=== PATIENT | male | born 1995 | race Caucasian/White ===

== ENCOUNTER 2017-06-04 11:30 | Emergency (ER) | payer SELFPAY ==
--- NOTE | 2017-06-04 11:59 | ER Document Report ---
HPI - HPI Patient complains to provider of: redness to left ankle and foot Onset: Yesterday Onset/Duration: Gradual Pain Level: 5 Context: 21 yo male with reddness and pain to dorsal left foot and left lateral ankle since yesterday. No inury or fever. No hx gout. Non dm. No insect bite known. Drove from [place] after work to get checked. Here with mom. No fever or chills. Associated Symptoms: None Exacerbated by: Movement Relieved by: Denies Similar symptoms previously: No Recently seen / treated by doctor: No - ROS ROS below otherwise negative: Yes Systems Reviewed and Negative: Yes All other systems reviewed and negative - MUSCULOSKELETAL Musculoskeletal: REPORTS: Extremity pain - left foot /ankle Past Medical History - General Information source: Patient - Social History Smoking Status: Current Every Day Smoker Chew tobacco use (# tins/day): No Frequency of alcohol use: None Drug Abuse: None Lives with: Family Family History: Reviewed & Not Pertinent Patient has suicidal ideation: No Patient has homicidal ideation: No - Medical History Medical History: Negative Renal/ Medical History: Denies: Hx Peritoneal Dialysis Surgical Hx: Negative - Immunizations Immunizations up to date: Yes Hx Diphtheria, Pertussis, Tetanus Vaccination: Yes Vertical Provider Document - CONSTITUTIONAL Agree With Documented VS: Yes Exam Limitations: No Limitations General Appearance: No Apparent Distress - INFECTION CONTROL TRAVEL OUTSIDE OF THE [place] IN LAST 30 DAYS: No - HEENT HEENT: Normocephalic - NECK Neck: Supple - RESPIRATORY O2 Sat by Pulse Oximetry: 100 - MUSCULOSKELETAL/EXTREMETIES Musculoskeletal/Extremeties: MAEW, FROM, Tender - pink skin marked with pen lateral left ankle and smaller area dorsal left foot, non contiguous. No lymphangitis - NEURO Level of Consciousness: Awake, Alert - DERM Integumentary: Warm, Dry Course - Re-evaluation Re-evalutation: 06/04/17 13:19 Labs are normal except for C-reactive protein which is 25.9. X-rays are negative. Will treat with antibiotics have him elevate it and put warm compresses with a recheck tomorrow. 06/04/17 13:30 pt does not want injection of antibiotic offered. - Vital Signs Vital signs: Temp Pulse Resp BP Pulse Ox 97.7 F 80 16 151/90 H 100 06/04/17 11:39 06/04/17 11:39 06/04/17 11:39 06/04/17 11:39 06/04/17 11:39 - Laboratory Result Diagrams: 06/04/17 12:18 06/04/17 12:18 Discharge - Discharge Clinical Impression: left ankle and foot cellulitis Condition: Good Disposition: HOME, SELF-CARE Instructions: Cephalexin ([facility]), Elevation & Warmth ([facility]), Trimethoprim-Sulfa ( [facility]) Additional Instructions: recheck in ER tomorrow elevate and heat on the foot and ankle return to er tonight if fever, chills, red going up the leg or beyond the purple line Prescriptions: Cephalexin [Cephalexin 500 MG Tablet] 1 tab PO QID #40 tablet Sulfamethoxazole/Trimethoprim [Sulfamethoxazole-Tmp Ds Tablet] 1 each PO BID # 14 tablet Forms: Return to Work
[2017-06-04] MEDS ORDERED: CIPROFLOXACIN HCL 500 MG TABLET PO ONE ×2 (12:10→13:15)
[2017-06-04] MEDS ORDERED: SULFAMETHOXAZOLE/TRIMETHOPRIM 800-160 MG TABLET PO ONE ×2 (12:10→13:15)
[2017-06-04] MEDS ORDERED: IBUPROFEN 800 MG TABLET PO ONE ×2 (12:10→13:15)
[2017-06-04 12:33] LABS: ABSOLUTE BASOPHILS # (AUTO) 0.1 10^3/uL (0.0-0.2); ABSOLUTE EOSINOPHILS # (AUTO) 0.2 10^3/uL (0.0-0.6); ABSOLUTE LYMPHOCYTES (AUTO) 2.3 10^3/uL (0.5-4.7); BASOPHILS % (AUTO) 0.8 % (0-2); EOSINOPHILS % (AUTO) 1.8 % (0-6); HEMATOCRIT 41.1 % (37.9-51.0); HEMOGLOBIN 14.2 g/dL (13.5-17.0); LYMPHOCYTES % (AUTO) 23.8 % (13-45); MEAN CORPUSCULAR HEMOGLOBIN 29.9 pg (27.0-33.4); MEAN CORPUSCULAR HGB CONC 34.6 g/dL (32.0-36.0); MEAN CORPUSCULAR VOLUME 86 fl (80-97); MONOCYTES % (AUTO) 10.7 % (3-13); PLATELET COUNT 272 10^3/uL (150-450); RED BLOOD COUNT 4.76 10^6/uL (4.35-5.55); RED CELL DISTRIBUTION WIDTH 13.3 % (11.5-14.0); SEGMENTED NEUTROPHILS % (AUTO) 62.9 % (42-78); TOTAL CELLS COUNTED % (AUTO) 100 %; WHITE BLOOD COUNT 9.5 10^3/uL (4.0-10.5)
[2017-06-04 12:51] LABS: ALANINE AMINOTRANSFERASE 215 U/L (10-40); ALBUMIN 3.8 g/dL (3.7-5.6); ALKALINE PHOSPHATASE 72 U/L (65-260); ANION GAP 9 (5-19); ASPARTATE AMINO TRANSFERASE 55 U/L (10-45); BILIRUBIN,DIRECT 0.3 mg/dL (0.0-0.4); BILIRUBIN,TOTAL 0.8 mg/dL (0.2-1.3); BLOOD UREA NITROGEN 11 mg/dL (7-20); C-REACTIVE PROTEIN 25.9 mg/L (<10.0); CALCIUM 9.1 mg/dL (8.4-10.2); CARBON DIOXIDE 28 mmol/L (22-30); CHLORIDE 106 mmol/L (98-107); GLUCOSE 91 mg/dL (75-110); POTASSIUM 3.9 mmol/L (3.6-5.0); SODIUM 143.2 mmol/L (137-145); TOTAL PROTEIN 6.6 g/dL (6.3-8.2); URIC ACID 4.5 mg/dL (3.5-8.5)
--- NOTE | 2017-06-04 13:11 | RADIOLOGY REPORT (SQ) ---
EXAM DESCRIPTION: ANKLE LEFT COMPLETE COMPLETED DATE/TIME: 06/04/2017 12:49 pm REASON FOR STUDY: swollen, red, warm COMPARISON: None. NUMBER OF VIEWS: Three views. TECHNIQUE: AP, lateral, and oblique radiographic images acquired of the left ankle. LIMITATIONS: None. FINDINGS: MINERALIZATION: Normal. BONES: No acute fracture or dislocation. No worrisome bone lesions. JOINTS: No effusions. SOFT TISSUES: Swelling over the lateral joint. No foreign body. OTHER: No other significant finding. IMPRESSION: No fracture. TECHNICAL DOCUMENTATION: JOB ID: [id number] [employer]- All Rights Reserved Reading location - IP/workstation name: [email or web address] [id number]
--- NOTE | 2017-06-04 13:11 | RADIOLOGY REPORT (SQ) ---
EXAM DESCRIPTION: FOOT LEFT COMPLETE COMPLETED DATE/TIME: 06/04/2017 12:49 pm REASON FOR STUDY: swollen, red, warm COMPARISON: None. NUMBER OF VIEWS: Three views. TECHNIQUE: AP, lateral and oblique radiographic images acquired of the left foot. LIMITATIONS: None. FINDINGS: MINERALIZATION: Normal. BONES: No acute fracture or dislocation. No worrisome bone lesions. JOINTS: No effusions. SOFT TISSUES: No soft tissue swelling. No foreign body. OTHER: No other significant finding. IMPRESSION: NEGATIVE STUDY OF THE LEFT FOOT. NO RADIOGRAPHIC EVIDENCE OF ACUTE INJURY. TECHNICAL DOCUMENTATION: JOB ID: [id number] [employer]- All Rights Reserved Reading location - IP/workstation name: [email or web address]
[2017-06-04 13:14] LABS: ERYTHROCYTE SEDIMENTATION RATE 11 mm/hr (0-15)
[2017-06-04] MEDS ORDERED: CEPHALEXIN 500 MG CAPSULE PO ONE (13:28)
[2017-06-04 13:45] VITALS: BP 142/81
== END 2017-06-04 13:45 | disposition home or self-care (01) ==
LOC: ER 11:30
DX: L03.116 Cellulitis of left lower limb (principal); F17.200 Nicotine dependence, unspecified, uncomplicated
CPT/HCPCS: 36415; 80053; 84550; 85025; 85652; 86140; 99283

== ENCOUNTER 2018-07-27 15:56 | Emergency (ER) | payer SELFPAY ==
[2018-07-27 16:11] VITALS: BP 141/85
--- NOTE | 2018-07-27 16:31 | ER Document Report ---
HPI - HPI Patient complains to provider of: Spider bite Time Seen by Provider: 07/27/18 16:26 Onset: Other - 3 days ago Onset/Duration: Persistent Quality of pain: Achy Pain Level: 1 Context: Patient states that he saw a spider on his right upper arm and he killed the spider. Patient states that the area where the spider bit is swollen and mildly tender. Patient denies any fever or history of MRSA. Patient additionally reports getting sunburnt a week ago and having large blisters to the shoulder area bilaterally. Patient now with scabbed lesions to bilateral shoulder. Patient denies any fever. Associated Symptoms: Other - Tender lump to right upper arm, resolving sunburn to bilateral shoulders and upper back. denies: Fever, Nausea, Vomiting Exacerbated by: Denies Relieved by: Denies Similar symptoms previously: No Recently seen / treated by doctor: No - ROS ROS below otherwise negative: Yes Systems Reviewed and Negative: Yes All other systems reviewed and negative - CONSTITUTIONAL Constitutional: DENIES: Fever, Chills - NEURO Neurology: DENIES: Headache, Weakness - RESPIRATORY Respiratory: DENIES: Coughing - GASTROINTESTINAL Gastrointestinal: DENIES: Nausea, Patient vomiting - DERM Skin Color: Erythema - Erythema to bilateral shoulders and upper back Notes: Scabbed wounds to bilateral shoulders, lump to right upper arm Past Medical History - General Information source: Patient - Social History Smoking Status: Current Every Day Smoker Smoking Education Provided: Yes Frequency of alcohol use: None Drug Abuse: None Occupation: construction Lives with: Family Family History: Reviewed & Not Pertinent - Medical History Medical History: Negative Renal/ Medical History: Denies: Hx Peritoneal Dialysis Surgical Hx: Negative - Immunizations Immunizations up to date: Yes Hx Diphtheria, Pertussis, Tetanus Vaccination: Yes Vertical Provider Document - CONSTITUTIONAL Agree With Documented VS: Yes Exam Limitations: No Limitations General Appearance: WD/WN, No Apparent Distress - INFECTION CONTROL TRAVEL OUTSIDE OF THE [place] IN LAST 30 DAYS: No - HEENT HEENT: Atraumatic, Normal ENT Exam, Normocephalic - NECK Neck: Normal Inspection, Supple. negative: Lymphadenopathy-Left, Lymphadenopathy-Right - RESPIRATORY Respiratory: Breath Sounds Normal, No Respiratory Distress - CARDIOVASCULAR Cardiovascular: Regular Rate, Regular Rhythm - MUSCULOSKELETAL/EXTREMETIES Musculoskeletal/Extremeties: MAEW, FROM, No Edema Notes: Patient with a palpable nodular lesion to the distal third of right upper arm, normal skin color and temperature overlying this area. Lesion is mobile - NEURO Level of Consciousness: Awake, Alert, Appropriate Motor/Sensory: No Motor Deficit - DERM Integumentary: Warm, Dry, Rash - Patient with sunburn to bilateral shoulder and upper back area. Patient with thick scabbing and crusting to bilateral shoulder areas right worse than left. negative: Abscess Course - Re-evaluation Re-evalutation: 07/27/18 16:28 Patient with a partial-thickness sunburn with crusting over areas patient reports one blistered. Suspect that lesion to right arm is likely enlarged lymph node likely reactive due to burn and extensive crusting wounds to right shoulder area. - Vital Signs Vital signs: Temp Pulse Resp BP Pulse Ox 98.5 F 84 16 141/85 H 100 07/27/18 16:10 07/27/18 16:10 07/27/18 16:10 07/27/18 16:10 07/27/18 16:10 Discharge - Discharge Clinical Impression: Burn from the sun, Lymph node enlargement, hx spider bite Condition: Stable Disposition: HOME, SELF-CARE Instructions: Bactroban Ointment ([facility]), Cephalexin ([facility]), Sunburn ([facility]), Trimethoprim-Sulfa ([facility]) Additional Instructions: Return immediately for any new or worsening symptoms Followup with your primary care provider, call tomorrow to make a followup appointment Cover wounds with ointment and dressing until they have completely healed Wear sunblock when outside or wear protective clothing Prescriptions: Cephalexin Monohydrate [Keflex 500 mg Capsule] 500 mg PO Q6H 5 Days capsule Mupirocin [Bactroban 2% Ointment 22 gm] 1 applic TP TID #22 gm Naproxen [Naprosyn 250 Nmg Tablet] 1 tab PO BID #14 tablet Sulfamethoxazole/Trimethoprim [Bactrim Ds Tablet] 1 each PO BID #20 tablet Forms: Smoking Cessation Education Referrals: [facility] [Provider Group] - Follow up as needed [facility] [Provider Group] - Follow up as needed
== END 2018-07-27 16:52 | disposition home or self-care (01) ==
LOC: ER 15:56
DX: T63.301A Toxic effect of unspecified spider venom, accidental (unintentional), initial encounter (principal); L55.1 Sunburn of second degree; R59.1 Generalized enlarged lymph nodes
CPT/HCPCS: 99282